=== PATIENT | male | born 1990 ===

== ENCOUNTER 2022-02-21 14:13 | Emergency (ER) | payer BC, MEDICAID ==
[2022-02-21] MEDS ORDERED: Lidocaine 1% 10 ML MDV INJECT ONE (17:58)
== END 2022-02-21 19:30 | disposition home or self-care (01) ==
LOC: JD.ED 14:13
DX: S61.217A Laceration without foreign body of left little finger without damage to nail, initial encounter (principal); Z88.0 Allergy status to penicillin; Z79.899 Other long term (current) drug therapy; Z86.16 Personal history of COVID-19; W26.0XXA Contact with knife, initial encounter
CPT/HCPCS: 12002; 99282

== ENCOUNTER 2023-07-21 11:46 | Emergency (ER) | payer SELFPAY ==
[2023-07-21] MEDS: Diphtheria,Pertussis(Acell),Tetanus Vaccine 0.5 ML Syringe IM ONE (12:15)
== END 2023-07-21 12:30 | disposition home or self-care (01) ==
LOC: JD.ED 11:46
DX: S61.211A Laceration without foreign body of left index finger without damage to nail, initial encounter (principal); S61.213A Laceration without foreign body of left middle finger without damage to nail, initial encounter; Z86.16 Personal history of COVID-19; Z88.0 Allergy status to penicillin; Z23 Encounter for immunization; W26.0XXA Contact with knife, initial encounter
CPT/HCPCS: 90471; 90715; 99282; 99282-25